=== PATIENT | female | born 1985 | race African-American/Black ===

== ENCOUNTER 2016-12-30 02:03 | Emergency (ER) | payer OTHER ==
[~2016-12-30] VITALS: Ht 167.6 cm; Wt 72.7 kg
[2016-12-30] MEDS ORDERED: IBUP200C10 PO (02:24)
[2016-12-30 03:59] VITALS: BP 134/62
[2016-12-30] MEDS ORDERED: MOBI4TAB PO (14:06)
[2016-12-30] MEDS ORDERED: OXYC1TAB23 PO (14:06)
== END 2016-12-30 04:02 | disposition left against medical advice (07) ==
LOC: M ED 02:03 → EDBD 02:03 → M ED 04:02
DX: R56.9 Unspecified convulsions (principal); Z53.29 Procedure and treatment not carried out because of patient's decision for other reasons

== ENCOUNTER 2016-12-30 12:30 | Emergency (ER) | payer OTHER ==
[~2016-12-30] VITALS: Ht 167.6 cm; Wt 76.8 kg
[~2016-12-30 12:30] MED LIST: IBUP200C10 PO
[2016-12-30] MEDS ORDERED: KETOROLAC 60 MG/2 ML VIAL (J1885) IM ONE (13:30)
[2016-12-30] MEDS ORDERED: MOBI4TAB PO (14:06)
[2016-12-30] MEDS ORDERED: OXYC1TAB23 PO (14:06)
[2016-12-30 14:21] VITALS: BP 118/72
--- NOTE | 2016-12-30 14:47 | REP ---
DEEP VENOUS ULTRASONOGRAPHY RIGHT THIGH, RULE OUT DVT: REASON: Pain. PRIORS: None. TECHNIQUE: Multiple ultrasonographic images of the deep venous structures of the right thigh were obtained from the common femoral vein to the popliteal vein along with Doppler interrogation and color flow Doppler images. FINDINGS: There is no abnormal echogenic material seen within any of the visualized deep venous structures that would suggest acute thrombosis. Coaptation is unremarkable throughout. Doppler interrogation shows an expected response to respiratory variability and augmentation. The color flow images show what appears to be a normal vascular pattern throughout. There is a collection of fluid seen anterior to the lateral aspect of the knee of uncertain etiology. This could represent a small parapatellar bursal fluid collection. IMPRESSION: There is no ultrasonographic evidence of deep venous thrombosis involving any of the visualized deep venous structures of the right thigh, as described above. Signed by Hemant Gonzales DO 12/30/2016 04:42 P
--- NOTE | 2016-12-30 14:50 | REP ---
REASON: Knee pain. PRIORS: None. FINDINGS: The compartments are symmetric and relatively well maintained. There is no acute fracture or destructive osseous lesion. Signed by Hemant Gonzales DO 12/30/2016 04:43 P
== END 2016-12-30 14:22 | disposition home or self-care (01) ==
LOC: M ED 12:30
DX: S83.91XA Sprain of unspecified site of right knee, initial encounter (principal); X50.1XXA Overexertion from prolonged static or awkward postures, initial encounter; Y92.410 Unspecified street and highway as the place of occurrence of the external cause; Y93.9 Activity, unspecified; Y99.9 Unspecified external cause status; F17.200 Nicotine dependence, unspecified, uncomplicated; R56.9 Unspecified convulsions
CPT/HCPCS: 73564; 93971; 96372; 99283; J1885